=== PATIENT | male | born 1945 | race Caucasian/White ===

== ENCOUNTER → 2018-12-06 | Outpatient (CLI) | payer OTHER ==
--- NOTE | 2018-12-06 10:37 | PCVCIMAG ---
APPROVED REPORT Study performed: 12/06/2018 09:31:07 Exam: Stress Echocardiogram Indication: CAD s/p CABG, Hyperlipidemia, Hypertension, Dyspnea Patient Location: Echo lab Stress Nurse: Eliana Callahan RN Room #: 2 Status: routine Ht: 5 ft 8 in HR: 58 bpm BP: 144/80 mmHg Rhythm: NSR Medical History Medical History: CAD s/p CABG Cardiac Risk Factors: HTN, Hyperlipidemia Previous Cardiac Procedures: CABG Pretest Chest Pain Characteristics: No chest pain Exercise History: Physically active Procedure The patient underwent an Exercise Stress Test using the Meagan Protocol. Blood pressure, heart rate, and EKG were monitored. An Echocardiogram was performed by cardiac monitor technician in four stages in quad fashion. At peak stress, four selected images were obtained and placed side by side with resting images for comparison. Stress Test Details Stress Test: Exercise stress testing was performed using a Meagan protocol. HR Resting HR: 58 bpmMax Heart Rate (APMHR): 149 bpm Max HR Achieved: 150 bpmTarget HR (85% APMHR): 126 bpm % of APMHR: 100 Recovery HR: 86 bpm HR response to stress: Normal HR response to stress BP Resting BP: 144/80 mmHg Max BP: 182/82 mmHg Recovery BP: 158/68 mmHg BP response to stress: Normal blood pressure response to stress. ECG Resting ECG: Sinus Rhythm Stress ECG: Sinus Rhythm ST Change: Normal Maximum ST Deviation: 0 mm Arrhythmia: Rare PAC Recovery ECG: Sinus Rhythm Recovery ST Change: Normal Recovery ST Deviation: 0 mm Recovery Arrhythmia: None Clinical Reason for Termination: Maximal effort Exercise duration: 12 min 30 sec Highest Stage Achieved: Stage 5: 5.0 mph at 18% grade. Exercise capacity: 15.3 METs Overall Exercise Capacity for Age: Excellent Scale: Active Angina Score: None No complications. Stress ECG Conclusion The patient exercised according to the MEAGAN protocol for 12:30 mins; achieving a work level of 15.30 METS. The resting heart rate of 58 bpm bess to a maximum heart rate of 150 bpm. This value represent 100% of the maximal, age-predicted heart rate. The resting blood pressure of 144/80 mmHg, bess to a maximum blood pressure of 182/82 mmHg. The exercise test was stopped due to fatigue. Ambriz Treadmill Score is 12.0 which is Low risk. Pre-Stress Echo The resting Echocardiogram showed normal left ventricular contractility with an estimated Ejection Fraction of about 55-60%. Normal wall motion in all segments on baseline images. Post-Stress Echo The stress Echocardiogram showed normal left ventricular contractility with an estimated Ejection Fraction of about 65-70%. Normal augmentation of wall motion in all segments on post stress images. Clinical No clinical or ECG evidence for ischemia. Conclusion Clinical Response: Non-ischemic Exercise Capacity: Superior Stress ECG Response: Non-ischemic Stress Echo Images: Non-ischemic No clinical, EKG or echocardiographic evidence for ischemia. No echocardiographic evidence for exercise induced ischemia. Normal stress echocardiogram with maximal exercise stress. <Conclusion> No clinical, EKG or echocardiographic evidence for ischemia. No echocardiographic evidence for exercise induced ischemia. Normal stress echocardiogram with maximal exercise stress.
--- NOTE | 2018-12-06 10:55 | PCVCIMAG ---
APPROVED REPORT Indications Stenosis Risk Factors Hypertension: Doppler Spectral Velocity Analysis PSV / EDVPSV / EDV ECA (R) 85 / 14 cm/sECA (L) 120 / 16 cm/s dICA (R) 58 / 21 cm/sdICA (L) 59 / 22 cm/s Jimmy (R) 80 / 20 cm/smICA (L) 100 / 28 cm/s pICA (R) 63 / 14 cm/spICA (L) 106 / 33 cm/s Bulb (R) 74 / 15 cm/sBulb (L) 85 / 19 cm/s dCCA (R) 90 / 16 cm/sdCCA (L) 80 / 16 cm/s mCCA (R) 145 / 20 cm/smCCA (L) 127 / 22 cm/s Vert (R) 39 / 9 cm/sVert (L) 59 / 15 cm/s ICA/CCA 0.89ICA/CCA 1.33 Basic Measurements Blood Pressure: Pulses: Right Left RightLeft Brachial(Sitting) 134/43fdNz362/90mmHgTemporal Real Time B-Mode Imaging Vert. (R)AntegradeVert. (L)Antegrade Findings The right carotid bulb has mild plaque. The right proximal internal carotid artery shows <40% stenosis. The right common carotid artery shows no significant stenosis. The right external carotid artery shows no significant stenosis. The left carotid bulb has moderate calcified plaque. The left proximal internal carotid artery shows <40% stenosis. The left common carotid artery shows no significant stenosis. The left external carotid artery shows no significant stenosis. Conclusion 1. Right internal carotid artery plaquing without significant stenosis 2. Left internal carotid artery stenosis (<40%) 3. Antegrade vertebral flow
== END | disposition home or self-care (01) ==
LOC: PCVCIMAG 13:00
PROVIDERS: ATTEND Internal Medicine
DX: I65.23 Occlusion and stenosis of bilateral carotid arteries (principal); R06.09 Other forms of dyspnea; I10 Essential (primary) hypertension; E78.5 Hyperlipidemia, unspecified
CPT/HCPCS: 93325; 93351; 93880